=== PATIENT | male | born 1975 | race African-American/Black ===

== ENCOUNTER 2019-07-16 19:58 | Emergency (ER) | payer MEDICARE, OTHER ==
[~2019-07-16] VITALS: Ht 182.9 cm; Wt 90.7 kg
[~2019-07-16 19:58] MED LIST: BUPR100T4 PO; DIVA500T2 PO; HYDR2TAB35 PO; QUET400T PO; TRAZ-257 PO
--- NOTE | 2019-07-16 20:15 | NUR ---
Pt name called in waiting area three times, no response.
--- NOTE | 2019-07-16 21:00 | NUR ---
PT AAOX4. AMBULATORY. BIBSELF C/O RASH ON LEGS THAT SPREAD TO UPPER ARMS. PT ALSO STATED HE HAS BEEN HAVING PROBLEMS WITH DRINKING. VSS. AWAITING MD FOR EVAL.
--- NOTE | 2019-07-16 21:02 | NUR ---
Pt placed in gown and belonings in locker. vss. No acute distress noted.
--- NOTE | 2019-07-16 21:05 | NUR ---
PT STATES +SI WITH NO PLAN. -HI.
--- NOTE | 2019-07-16 22:20 | NUR ---
GALVANIZER AT BEDSIDE FOR LAB COLLECTION.
[2019-07-16 22:32] LABS: BASOPHILS # (AUTO) 0.1 /CMM (0.0-0.2); BASOPHILS % (AUTO) 1.4 % (0.0-2.0); HEMATOCRIT 36 % (39-51); HEMOGLOBIN 12.1 g/dL (13.5-17.5); LYMPHOCYTES # (AUTO) 0.9 /CMM (0.8-4.8); LYMPHOCYTES % (AUTO) 22.6 % (20.0-44.0); MEAN CORPUSCULAR HGB CONC 33 g/dl (31.0-36.0); MEAN CORPUSCULAR VOLUME 98 fL (80-96); MONOCYTES # (AUTO) 0.2 /CMM (0.1-1.30); NEUTROPHILS # (AUTO) 2.8 /CMM (1.8-8.9); PLATELET COUNT (AUTO) 128 /CMM (150-450); RED BLOOD CELL COUNT(AUTO) 3.71 MIL/uL (4.5-6.0)
[2019-07-16 22:40] LABS: CALCIUM, SERUM 8.5 mg/dL (8.5-10.1); CREATININE 0.8 mg/dL (0.6-1.3); POTASSIUM 3.6 mmol/L (3.5-5.1)
[2019-07-16 22:47] LABS: ALBUMIN 3.8 g/dL (3.4-5.0); BILIRUBIN,DIRECT 0.1 mg/dL (0.0-0.2); BILIRUBIN,TOTAL 0.1 mg/dL (0.2-1.0); TOTAL PROTEIN, SERUM 9.3 g/dL (6.4-8.2)
[2019-07-16 22:48] LABS: SALICYLATE 1.5 mg/dL (2.8-20.0)
--- NOTE | 2019-07-16 22:56 | NUR ---
ASKED PATIENT FOR URINE SAMPLE.
--- NOTE | 2019-07-16 23:01 | NUR ---
URINE SENT TO LAB
[2019-07-16 23:07] LABS: APPEARANCE,URINE Clear (CLEAR); BILIRUBIN,URINE Negative (NEGATIVE); BLOOD, URINE Negative Ery/uL (NEGATIVE); COLOR,URINE Yellow (YELLOW); KETONES,URINE Negative (NEGATIVE); LEUKOCYTE ESTERASE ,URINE Negative (NEGATIVE); NITRITE, URINE Negative (NEGATIVE); PH,URINE 5.5 (5.0-8.0); PROTEIN,URINE Negative (NEGATIVE); UGLUCOSE Negative (NEGATIVE); UROBILINOGEN,URINE 0.2 EU/dL (0.2)
--- NOTE | 2019-07-16 23:25 | NUR ---
Leandro shah in [facility] - 07/16/19 at 2330 by JAVIER CLINICAL INFORMATION FAXED TO [facility]
--- NOTE | 2019-07-17 02:15 | NUR ---
Patient is resting comfortably in bed with eyes closed. Easily aroused. VSS.
--- NOTE | 2019-07-17 07:30 | NUR ---
REPORT RECEIVED FROM CONCEPICON RICHMOND FOR TRISHA
--- NOTE | 2019-07-17 08:14 | NUR ---
FOOD TRAY AT BEDSIDE. PATIENT DOES NOT WANT TO EAT YET
--- NOTE | 2019-07-17 08:23 | NUR ---
PATIENT EATING BREAKFAST.
[2019-07-17 09:45] VITALS: BP 126/85
--- NOTE | 2019-07-17 11:31 | NUR ---
Social service consult requested by for homelessness. Per MD notes, pt is a 44-year-old homeless man who presented to the emergency department last night intoxicated and stating he feels suicidal. He does not report any rash as stated by nursing staff. He has no specific suicide plan. GASOLINE DRAGLINE OPERATOR met with the pt bedside in ED this morning. GASOLINE DRAGLINE OPERATOR introduced self and explained her role. Pt is alert and oriented x 4. Pt's mood is congruent. Pt is pleasant and cooperative with SW. Pt states he has been homeless for 8 months. Prior to being homeless, pt was residing at an Independent living in [facility] for two years. Pt receives SSDI in the amount of $1000 per month. Pt is interested in an independent living but does not have the funds for it at this time. [facility] provided pt with contact number to [facility] . Pt denies any drug use and has a history of Marijuana use. Pt reports to drink three 24 Oz of beers daily. Last night when pt came to the ED his alcohol level was over 300. Pt states, he last attended an alcohol treatment program 10 years ago. Pt is interested in getting referrals to alcohol treatment programs. Pt reports to have a psychiatric diagnosis of Bipolar Disorder and is non-compliant with his medications. Pt denies suicidal and homicidal ideations and visual/auditory hallucinations at this time. Pt is ambulatory and independent with his ADL's. [facility] offered pt Winter fpc placement. Pt is interested in the winter fpc placement in [place]. [facility] provided pt with homeless packet that includes [facility] [phone] Winter Senior Care program list, [facility] located at [address], [place] ; [place], [address] ; [facility] [place], [address], [place] ; [facility] Homeless Resource Directory which includes food stamps, transitional housing, showers and hot meals etc; Mental Health clinics such as [facility] ; [facility] ; Health clinics;[facility] and Alcohol treatment centers such as [facility], ; [facility] Substance Abuse Hotline and [facility] . Pt was provided with breakfast/ lunch and a TAP card. No other social service needs are requested at this time. Homeless patient waiver form was placed in pt's chart for him to sign upon discharge. GASOLINE DRAGLINE OPERATOR updated [facility] regarding pt's discharge plan.
--- NOTE | 2019-07-17 14:39 | NUR ---
ER PHLEB AT BEDSIDE FOR BLOOD DRAW.
--- NOTE | 2019-07-17 16:03 | NUR ---
ASSUMED CARE OF PT FOR DC PURPOSES ONLY. PT IS AMBULATORY WITH A STEADY GAIT. PT IS HOMELESS AND WAS SEEN BY MIGUEL MAK ROOF TRUSS DETAILER. PT WAS GIVEN HOMELESS PACKET WITH CARE HOME INFORMATION. PT WAS ALSO GIVEN A TAP CARD. PT AMBULATED OUT WITH A STEADY GAIT. VSS.
== END 2019-07-17 16:05 | disposition home or self-care (01) ==
LOC: ER 20:11
DX: F10.129 Alcohol abuse with intoxication, unspecified (principal); R45.851 Suicidal ideations; Y90.0 Blood alcohol level of less than 20 mg/100 ml; Z59.0 Homelessness; Z79.899 Other long term (current) drug therapy
CPT/HCPCS: 36415 ×2; 80048; 80076; 80305; 80307 ×2; 80329; 81001; 85025; 99285; G0480; 81000-TC